=== PATIENT | female | born 1975 | race Caucasian/White ===

== ENCOUNTER 2018-03-19 05:57 | Day surgery (SDC) | payer MEDICAID ==
[2018-03-19] MEDS ORDERED: Midazolam 1 MG/ML 2 ML SDV ONE (07:21)
[2018-03-19] MEDS ORDERED: fentaNYL 100 MCG/2 ML SDV ONE (07:21)
[2018-03-19] MEDS ORDERED: Propofol 200 MG/20 ML SDV ONE ×2 (07:21→07:29)
[2018-03-19] MEDS ORDERED: Ondansetron 4 MG/2 ML SDV ONE (07:25)
[2018-03-19] MEDS ORDERED: Bupivacaine 0.5%/EPINEPHrine 1:200,000 50 ML MDV ONE (07:25)
[2018-03-19] MEDS ORDERED: Lactated Ringers 1,000 ML IV SCH (08:00)
== END 2018-03-19 09:18 | disposition home or self-care (01) ==
LOC: JP.SDS 05:57
PROVIDERS: ATTEND Obstetrics & Gynecology
DX: N92.1 Excessive and frequent menstruation with irregular cycle (principal); N71.9 Inflammatory disease of uterus, unspecified; N84.0 Polyp of corpus uteri; R93.8 Abnormal findings on diagnostic imaging of other specified body structures; F17.210 Nicotine dependence, cigarettes, uncomplicated
CPT/HCPCS: 36415; 58563; 86850; 86900; 86901; J2250; J2405; J2704; J3010; J3490; J7120

== ENCOUNTER 2019-05-22 07:30 | Day surgery (SDC) | payer MEDICAID ==
[~2019-05-22 07:30] MED LIST: Lidocaine 1% with EPINEPHrine 1:100,000 50 ML MDV ONE
[2019-05-22] MEDS ORDERED: fentaNYL 100 MCG/2 ML SDV ONE (07:47)
[2019-05-22] MEDS ORDERED: Propofol 200 MG/20 ML SDV ONE ×2 (07:47→10:01)
[2019-05-22] MEDS ORDERED: Midazolam 1 MG/ML 2 ML SDV ONE (07:47)
[2019-05-22] MEDS ORDERED: Lidocaine 0.5% 50 ML SDV ONE (08:13)
[2019-05-22] MEDS ORDERED: Ondansetron 4 MG/2 ML SDV ONE (08:13)
[2019-05-22] MEDS ORDERED: Dexamethasone 4 MG/ML SDV ONE (08:13)
[2019-05-22] MEDS ORDERED: Ketorolac 60 MG/2 ML SDV ONE (08:13)
[2019-05-22] MEDS ORDERED: Acetaminophen 500 MG Tab PO ONE (08:30)
[2019-05-22] MEDS ORDERED: Dextrose 5%-Lactated Ringers 1,000 ML IV SCH (09:00)
[2019-05-22] MEDS ORDERED: ceFAZolin 2 GM in Sodium Chloride 0.9% 50 ML IV ONE (09:30)
[2019-05-22] MEDS ORDERED: HYDROmorphone 2 MG Tab PO ONE (11:30)
--- NOTE | 2019-05-30 13:04 | OR ---
DATE OF PROCEDURE: 05/22/2019 SURGEON: Landon Serra MD PREOPERATIVE DIAGNOSIS: Right carpal tunnel syndrome. POSTOPERATIVE DIAGNOSIS: Right carpal tunnel syndrome. PROCEDURE PERFORMED: Right carpal tunnel release ([id number]). ANESTHESIA: IV block plus sedation. INDICATION FOR PROCEDURE: This is a 44-year-old status post previous left carpal tunnel release, presenting with identical symptoms on the right side. Her examination and history are compatible with a carpal tunnel syndrome, and plan is to proceed with right carpal tunnel release. Potential risks including bleeding, infection, injury to the median nerve and/or its branches, possible incomplete relief of symptoms following the procedure were all reviewed, and the patient wishes to proceed. DETAILS OF PROCEDURE: The patient was taken to operating room and placed in a supine position. IV block was placed affecting the right forearm and hand, after which those areas were prepped and draped. A standard right carpal tunnel incision was made and carried down through the skin and subcutaneous tissue, and the transverse carpal ligament was then divided, maintaining ulnar orientation with regard to the underlying median nerve. This extended somewhat under the palm of the hand and underneath the incision, as well as proximally beyond the incision as well. At that point, there was relief of any pressure on the median nerve, which was otherwise intact. The subdermal tissue was then approximated with some 4-0 Vicryl stitch and the skin with 4-0 Vicryl skin stitch. Dressing was applied. The patient was taken to the recovery room in satisfactory condition. Landon Serra MD /[id number]
== END 2019-05-22 11:48 | disposition home or self-care (01) ==
LOC: JP.SDS 07:30
PROVIDERS: ATTEND Surgery
DX: G56.01 Carpal tunnel syndrome, right upper limb (principal); F17.200 Nicotine dependence, unspecified, uncomplicated
CPT/HCPCS: 64721; A9270; J0690; J1100; J1885; J2001; J2250; J2405; J2704; J3010; J7042; J7050